=== PATIENT | male | born 1945 | race Caucasian/White ===

== ENCOUNTER 2016-10-19 13:26 | Emergency (ER) | payer MEDICARE, OTHER ==
[2016-10-19 13:47] VITALS: BP 129/65; PULSE 77; RESP 18; TEMP 97.6; O2SAT 97
== END 2016-10-19 15:25 | disposition home or self-care (01) | DRG 556 ==
LOC: ED 13:26
DX: M25.531 Pain in right wrist (principal)
CPT/HCPCS: 73110; 99282